=== PATIENT | female | born 1965 | race Caucasian/White ===

== ENCOUNTER 2016-05-30 15:44 | Emergency (ER) | payer OTHER ==
[~2016-05-30] VITALS: Ht 165.1 cm; Wt 72.6 kg
[~2016-05-30 15:44] MED LIST: AVPAK AZITHROM250 M1 PO; BACTRIM DS 8001 TA1 PO; BACTRIM DS 8001 TAB PO; CLARITIN-D 10 M1 T21 PO; DUAVEE 0.45-201 EACH PO; FLOMAX0.4 MG PO; FLONASE ALLERG9.9 ML NS; HYDROCODONE BIT1 T11 PO; MOBIC15 MG PO; MOTRIN600 MG PO; NORCO 10-325 T1 EACH PO; PAXIL10 MG PO; PRAVASTATIN SOD20 MG PO; PREMARIN V0.625 MG/G V; PRILOSEC40 M1 PO; PROAIR HFA8.5 GM INH; SUMATRIPTA6 MG/0.54 SQ; TAMIFLU 75MG CA75 MG PO; TOPIRAMATE100 M2 PO; VENLAFAXINE HYD75 M3 PO; VITAMIN D-32000 UNIT PO; VITAMIN D5000 IU PO; VITAMIN D50000 I3 PO
[2016-05-30] MEDS ORDERED: FISH OIL500 M1 PO (16:14)
[2016-05-30] MEDS ORDERED: MAGNESIUM400 MG PO (16:14)
[2016-05-30 16:49] LABS: HEMATOCRIT 38.3 % (37.0-47.0); HEMOGLOBIN 12.6 g/dl (12.0-16.0); MEAN CORPUSCULAR HGB 31.6 pg (27.0-31.0); MEAN CORPUSCULAR HGB CONC 32.9 g/dl (33.0-37.0); MEAN PLATELET VOLUME 9.5 fl (9.6-12.3); PLATELET COUNT AUTOMATED 271 10*3/uL (130-400); RED BLOOD COUNT 3.99 10*6/uL (4.10-5.10); RED CELL DISTRI WIDTH 12.6 % (0-14.5); WHITE BLOOD COUNT 11.5 10*3/uL (4.8-10.8)
[2016-05-30 17:04] LABS: ALBUMIN 3.5 gm/dl (3.1-4.5); ALKALINE PHOSPHATASE 66 U/L (45-117); BILIRUBIN, TOTAL 0.4 mg/dl (0.2-1.0); BUN 16 mg/dl (7-24); CARBON DIOXIDE 26 mmol/L (21-32); CHLORIDE 108 mmol/L (98-107); EST GLOM FILT AFRICAN AMERICAN > 60 ml/min; GLUCOSE 94 mg/dL (65-99); POTASSIUM 3.7 mmol/L (3.5-5.1); SGOT/AST 17 IU/L (3-35); SGPT/ALT 23 U/L (12-78); SODIUM 142 mmol/L (136-145); TOTAL PROTEIN 6.7 gm/dL (6.4-8.2)
[2016-05-30 17:28] LABS: ATYPICAL LYMPHS 2 % (0-0); LYMPHOCYTE # 1.5 10*3/uL (1.3-4.4); MONOCYTE # 0.6 10*3/uL (0.1-1.0); NEUTROPHIL # 9.4 10*3/uL (2.3-7.9); NEUTROPHILS 82 % (47-73); PLATELET SUFFICIENCY NORMAL (NORMAL); TOTAL CELLS COUNTED 100 #CELLS
== END 2016-05-30 18:14 | disposition home or self-care (01) ==
LOC: ED 15:44
PROVIDERS: Registered Nurse
DX: G43.909 Migraine, unspecified, not intractable, without status migrainosus (principal); F17.200 Nicotine dependence, unspecified, uncomplicated; Z88.1 Allergy status to other antibiotic agents

== ENCOUNTER 2016-08-15 11:01 | Emergency (ER) | payer OTHER ==
[~2016-08-15 11:01] MED LIST changes: +FISH OIL500 M1 PO; +MAGNESIUM400 MG PO
[2016-08-15] MEDS ORDERED: VENTOLIN H0.09 MG/AC INH ×3 (12:23→12:27)
[2016-08-15] MEDS ORDERED: CIPRO500 MG PO ×3 (12:23→12:27)
== END 2016-08-15 11:45 | disposition home or self-care (01) ==
LOC: ED 11:01
DX: J20.9 Acute bronchitis, unspecified (principal); F17.200 Nicotine dependence, unspecified, uncomplicated; Z79.899 Other long term (current) drug therapy; Z88.1 Allergy status to other antibiotic agents

== ENCOUNTER 2016-11-01 22:04 | Emergency (ER) | payer OTHER ==
[~2016-11-01] VITALS: Ht 162.5 cm; Wt 72.6 kg
[~2016-11-01 22:04] MED LIST changes: +CIPRO500 MG PO; +VENTOLIN H0.09 MG/AC INH
== END 2016-11-02 00:05 | disposition home or self-care (01) ==
LOC: ED 22:04
DX: G43.909 Migraine, unspecified, not intractable, without status migrainosus (principal); Z79.899 Other long term (current) drug therapy; Z88.1 Allergy status to other antibiotic agents

== ENCOUNTER 2017-01-13 21:08 | Emergency (ER) | payer OTHER ==
[~2017-01-13] VITALS: Ht 165.1 cm; Wt 74.8 kg
[2017-01-13] MEDS ORDERED: CYMBALTA30 MG PO (21:16)
[2017-01-13] MEDS ORDERED: REQUIP0.5 MG PO (21:18)
[2017-01-13] MEDS ORDERED: TRAZADONE HYDR100 MG PO (21:18)
== END 2017-01-13 22:53 | disposition home or self-care (01) ==
LOC: ED 21:08
DX: R59.1 Generalized enlarged lymph nodes (principal); Z88.1 Allergy status to other antibiotic agents; Z79.899 Other long term (current) drug therapy; F17.200 Nicotine dependence, unspecified, uncomplicated

== ENCOUNTER → 2017-01-21 | Outpatient (CLI) | payer OTHER ==
[~2017-01-21] MED LIST changes: +CYMBALTA30 MG PO; +REQUIP0.5 MG PO; +TRAZADONE HYDR100 MG PO
== END | disposition home or self-care (01) ==
LOC: US 16:44
DX: E04.2 Nontoxic multinodular goiter (principal)

== ENCOUNTER 2017-02-09 21:20 | Emergency (ER) | payer OTHER ==
[~2017-02-09] VITALS: Ht 162.5 cm; Wt 77.1 kg
== END 2017-02-09 23:22 | disposition home or self-care (01) ==
LOC: ED 21:20
DX: G43.909 Migraine, unspecified, not intractable, without status migrainosus (principal); F17.200 Nicotine dependence, unspecified, uncomplicated; Z88.1 Allergy status to other antibiotic agents; Z79.899 Other long term (current) drug therapy

== ENCOUNTER 2017-04-22 22:02 | Emergency (ER) | payer OTHER ==
[~2017-04-22] VITALS: Ht 165.1 cm; Wt 77.1 kg
[2017-04-22] MEDS ORDERED: CYCLOBENZAPRINE5 M3 PO (23:55)
== END 2017-04-22 23:59 | disposition home or self-care (01) ==
LOC: ED 22:02
DX: G43.909 Migraine, unspecified, not intractable, without status migrainosus (principal); F17.200 Nicotine dependence, unspecified, uncomplicated; Z88.1 Allergy status to other antibiotic agents; Z79.899 Other long term (current) drug therapy

== ENCOUNTER 2017-06-16 13:45 | Emergency (ER) | payer OTHER ==
[~2017-06-16] VITALS: Ht 162.5 cm; Wt 77.1 kg
[~2017-06-16 13:45] MED LIST changes: +CYCLOBENZAPRINE5 M3 PO
== END 2017-06-16 13:58 | disposition home or self-care (01) ==
LOC: ED 13:45
DX: G43.909 Migraine, unspecified, not intractable, without status migrainosus (principal); F17.200 Nicotine dependence, unspecified, uncomplicated; Z88.1 Allergy status to other antibiotic agents

== ENCOUNTER 2017-07-11 18:06 | Emergency (ER) | payer OTHER ==
[~2017-07-11] VITALS: Ht 165.1 cm; Wt 74.8 kg
[2017-07-11] MEDS ORDERED: PROAIR HFA8.5 GM INH (19:33)
[2017-07-11] MEDS ORDERED: HYCODAN/HYDROMET5 ML PO (19:33)
[2017-07-11] MEDS ORDERED: ZITHROMAX250 MG PO (19:33)
== END 2017-07-11 19:32 | disposition home or self-care (01) ==
LOC: ED 18:06
DX: G43.909 Migraine, unspecified, not intractable, without status migrainosus (principal); F17.200 Nicotine dependence, unspecified, uncomplicated; Z88.1 Allergy status to other antibiotic agents; Z79.899 Other long term (current) drug therapy

== ENCOUNTER 2017-07-25 20:54 | Emergency (ER) | payer OTHER ==
[~2017-07-25] VITALS: Ht 165.1 cm; Wt 77.1 kg
[~2017-07-25 20:54] MED LIST changes: +HYCODAN/HYDROMET5 ML PO; +ZITHROMAX250 MG PO
[2017-07-25] MEDS ORDERED: KETOROLAC10 MG PO (22:16)
== END 2017-07-25 22:19 | disposition home or self-care (01) ==
LOC: ED 20:54
DX: G43.001 Migraine without aura, not intractable, with status migrainosus (principal); F17.200 Nicotine dependence, unspecified, uncomplicated; Z88.1 Allergy status to other antibiotic agents

== ENCOUNTER 2017-08-04 19:58 | Emergency (ER) | payer OTHER ==
[~2017-08-04] VITALS: Ht 165.1 cm; Wt 72.6 kg
[~2017-08-04 19:58] MED LIST changes: +KETOROLAC10 MG PO
[2017-08-04 20:39] LABS: BASO % 0.1 % (0.0-1.0); EOS # 0.1 10*3/uL (0.0-0.4); EOS % 0.9 % (1.0-4.0); HEMATOCRIT 39.1 % (37.0-47.0); HEMOGLOBIN 12.9 g/dl (12.0-16.0); LYMPH % 29.2 % (27.0-41.0); MEAN CELL VOLUME 95.4 fl (81.0-99.0); MEAN CORPUSCULAR HGB 31.5 pg (27.0-31.0); MEAN PLATELET VOLUME 9.9 fl (9.6-12.3); MONO # 0.5 10*3/uL (0.1-1.0); MONO % 4.6 % (3.0-9.0); NEUT # 6.6 10*3/uL (2.3-7.9); NEUT % 64.8 % (47.0-73.0); PLATELET COUNT AUTOMATED 269 10*3/uL (130-400); RED CELL DISTRI WIDTH 12.9 % (0-14.5); WHITE BLOOD COUNT 10.2 10*3/uL (4.8-10.8)
[2017-08-04 20:54] LABS: ALBUMIN 3.4 gm/dl (3.1-4.5); ALKALINE PHOSPHATASE 72 U/L (45-117); BUN 15 mg/dl (7-24); CHLORIDE 106 mmol/L (98-107); CREATININE 0.93 mg/dL (0.55-1.02); LIPASE 119 U/L (73-393); POTASSIUM 3.6 mmol/L (3.5-5.1); SGOT/AST 19 IU/L (3-35); SGPT/ALT 24 U/L (12-78); SODIUM 141 mmol/L (136-145); TOTAL PROTEIN 6.8 gm/dL (6.4-8.2)
[2017-08-04 21:04] LABS: BILIRUBIN NEGATIVE (NEGATIVE); BLOOD NEGATIVE (NEGATIVE); CLARITY SL CLOUDY (CLEAR); COLOR YELLOW (YELLOW); GLUCOSE NEGATIVE (NEGATIVE); KETONE NEGATIVE (NEGATIVE); LEUKO ESTERASE NEGATIVE (NEGATIVE); NITRITE NEGATIVE (NEGATIVE); SPECIFIC GRAVITY >= 1.030 (1.005-1.030); UROBILINOGEN 0.2 E.U./dl (0.2-1.0)
[2017-08-04 21:17] LABS: BACTERIA 4+; EPITHELIAL CELLS TNTC; MUCOUS TRACE; RBC 0-2 rbc/hpf (0-2)
== END 2017-08-04 23:01 | disposition home or self-care (01) ==
LOC: ED 19:58
PROVIDERS: Nurse Practitioner Family
DX: K82.0 Obstruction of gallbladder (principal); R10.9 Unspecified abdominal pain; F17.200 Nicotine dependence, unspecified, uncomplicated; Z79.899 Other long term (current) drug therapy; Z88.1 Allergy status to other antibiotic agents